=== PATIENT | male | born 1960 | race Caucasian/White ===

== ENCOUNTER 2019-11-10 11:48 | Emergency (ER) | payer MEDICAID, MEDICARE ==
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
== END 2019-11-10 13:44 | disposition home or self-care (01) ==
LOC: DL.ED 11:48
DX: S46.002A Unspecified injury of muscle(s) and tendon(s) of the rotator cuff of left shoulder, initial encounter (principal); I10 Essential (primary) hypertension; F17.210 Nicotine dependence, cigarettes, uncomplicated; W19.XXXA Unspecified fall, initial encounter
CPT/HCPCS: 73030-LT; 99283